=== PATIENT | male | born 1970 | race Caucasian/White ===

== ENCOUNTER 2024-06-09 08:41 | Outpatient (REF) | payer MEDICAID, SELFPAY ==
[2024-06-09 16:28] LABS: Calculated LDL 166 mg/dL (<100); Cholesterol 239 mg/dL (<200); HDL Cholesterol 61 mg/dL (40-60); Triglyceride 63 mg/dL (<150)
== END 2024-06-09 08:42 | disposition home or self-care (01) ==
LOC: NCHCN 08:41
PROVIDERS: PCP Family Medicine; Visit Provider Family Medicine
DX: Z00.00 Encounter for general adult medical examination without abnormal findings (principal)
CPT/HCPCS: 80061

== ENCOUNTER 2024-07-09 07:35 | Day surgery (SDC) | payer MEDICAID, SELFPAY ==
--- NOTE | 2024-07-08 09:18 | W.PM.DSUDISC ---
Date of service: 07/09/24 Discharge Plan Disposition Patient Disposition: Home Condition: Good Discharge Details Reason For Visit: screening colonoscopy Attending Provider: Manuelito Pollack Primary Care Provider: Sigifredo Henry Home Meds and New Rx's Prescriptions: Discontinued polyethylene glycol 3350 17 gram/dose powder 238 g PO ONCE Qty: 238 0RF Rx Instructions: take per colonoscopy instructions bisacodyl [Dulcolax (bisacodyl)] 5 mg tablet,delayed release (DR/EC) 5 mg PO ONCE Qty: 4 0RF Rx Instructions: take per colonoscopy instructions No Action No Known Home Meds Discharge Instructions Instructions: Colon polyps, Diverticulosis Additional Instructions: Kar, it was very nice meeting you today, and I hope you feel well after the colonoscopy. Everything went very smoothly. I did find, and removed 1 small polyp today. As we talked about beforehand, this will be sent off for testing since polyps, different types, and we use that information to help to find the timing of your next colonoscopy. Those results usually take about a week or so for me to get back, but once my office has those, we will be in touch. Incidentally, he also have a little bit of diverticulosis. Diverticula are weak spots in the muscular layer of the colon wall. This causes the inside or mucosal lining to pooch or pocket outwards through the muscular layer. These pockets are called diverticula, and the condition of having them is known as diverticulosis. I find these in most patients during routine colonoscopies. Many patients are never at all bothered by them. Some patients experience intermittent flareups of them referred to as diverticulitis. Hopefully that never happens for you. My general approach to taking care of diverticulosis is to recommend staying well-hydrated, avoiding symptoms of constipation, and incorporating more fiber into your basic diet. I will attach a little bit of information here about diverticulosis as well as colorectal polyps. If you need anything, or have any questions at all, please do not hesitate to ask, otherwise we will be in touch once we have the polyp report. 1. If tolerated, consume a soft, low fiber diet for 1-2 days. 2. Do not drive, drink alcohol, operate machinery, make critical decisions, or do activities that require coordination or balance for 24 hours. 3. Because air was put into your colon during the procedure, expelling air from your rectum (passing gas or farting) is normal. 4. You may not have a bowel movement for 1-3 days because of the colonoscopy prep. This is normal. 5. Go directly to the emergency room if you notice any of the following: Develop chills (warm to touch), or if you have a thermometer and your temperature is above 101 Difficulty breathing or difficultly swallowing Persistent vomiting Severe abdominal pain, other than gas cramps Severe chest pain Black, tarry stools Any bleeding ? exceeding one tablespoon 6. Call your physician if the site where your intravenous was started becomes red, swollen, painful, and warm to touch. 7. Your physician has reviewed your pre-procedure medications. Please continue to take those medications as previously ordered. You will be given specific information/education regarding any changes to your medications before leaving. Activity:: Activity as Tolerated Diet:: As Tolerated Discharge Orders Discharge Orders: Discharge Order (Routine); Ordered 07/08/24 Ordered By: Manuelito Pollack DS: Diagnosis Discharge Diagnosis (1) Encounter for screening colonoscopy: Status: Acute Asessment and Plan: Follow-up on polypectomy results
--- NOTE | 2024-07-08 09:19 | W.COLOREPORT ---
Date of service: 07/09/24 Time of Service: 09:41 Colonoscopy Report Date of procedure: 07/09/24 Pre-op diagnosis general: screening colonoscopy Post-op diagnosis procedure note: other (Diverticulosis, colon polyp) Procedure: colonoscopy with polypectomy Surgeon: Manuelito Pollack Anesthesia Type: General:No Airway Estimated blood loss (mL): 5 Pathology: other (0.25 cm flat polyp at 20 cm) Complications: None Disposition: same day Indications: Kar is a 54 year old man who needs his first screening colonoscopy Prep: Miralax/Dulcolax Procedure Start Time: :14 Procedure End Time: :30 Retraction Time: 13 Findings: Sigmoid diverticulosis, 0.5 cm flat polyp at 20 cm Procedure Description: After the induction of anesthesia, and with the patient in left lateral decubitus position, I began by performing an external anorectal exam.? Perineum and skin were normal, as was the anal verge.? There was no evidence of external hemorrhoids.? Next, I performed a digital rectal exam.? I did not appreciate any abnormal findings.? Next, I advanced a colonoscope into the rectal vault.? I performed retroflexion. This appeared normal.? Using irrigation, I then advanced the colonoscope beyond the rectal folds and into the sigmoid colon before advancing towards the cecum.? The quality of the prep was excellent.? The scope was noted to be in the cecum by identification of the ileocecal valve and appendiceal orifice.? I then began withdrawing the colonoscope using repeated irrigation as necessary for full evaluation of the colonic mucosa. There is sigmoid diverticulosis. Around 20 cm from the anal verge I identified a 0.25 cm polyp. ?It appeared flat in character. ?I was able to remove this with a cold forcep polypectomy. ?I examined the site, and there was minimal bleeding. ?Once this was completed, I continued to withdraw the scope and examine the remainder of the colonic mucosa. once the scope was withdrawn to the level of the rectum, great care was taken to examine portions of the rectal folds.? Finally, the scope was withdrawn and the patient was brought to the same-day surgery recovery unit as the anesthetic wore off. ?The findings and instructions were shared with the patient prior to discharge. [place] Bowel Prep [place] Bowel Prep Right Colon: 3 Left Colon: 3 Transverse Colon: 3 Total Score: 9
[2024-07-09 07:48] VITALS: BP 114/72; PULSE 63; RESP 18; TEMP 36.5; O2SAT 96
[2024-07-09] MEDS: Lactated Ringers 1,000 ML 80 ML IV (08:01)
--- NOTE | 2024-07-09 08:33 | W.ANESPRE ---
General Info Date of Service Date Performed: 07/09/24 Height: 6 ft Weight: 91.3 kg Body Mass Index (BMI): 27.3 Surgical Procedure: Operation Date: 07/09/24 08:50 Proposed Procedure Side Surgeon p Colonoscopy Manuelito Pollack MD Meds Allergies and Home Medications Allergies Allergy/AdvReac Type Severity Reaction Status Date / Time No Known Allergies Allergy Verified 07/09/24 07:54 Home Medication ?Medication ?Instructions ?Recorded Unknown [No Known Home Meds] 07/08/24 Current Visit Medications: Current Medications Generic Name Dose Route Start Last Admin Trade Name Freq PRN Reason Stop Dose Admin Ringer's Solution 1,000 mls @ 80 mls/hr 07/09/24 06:00 07/09/24 08:01 IV 07/09/24 23:59 80 mls/hr INFUSION CLARICE Administration IV Miscellaneous Supplies 1 each 07/09/24 06:00 Iv Access IV 07/09/24 23:59 DIRECTED CLARICE Sodium Chloride 0 ml 07/09/24 06:00 Normal Saline Flush 10 Ml Syr IV 07/09/24 23:59 PRN PRN Sodium Chloride 0 ml 07/09/24 06:00 Normal Saline 10 Ml Vial IJ 07/09/24 23:59 DIRECTED PRN Sterile Water 0 ml 07/09/24 06:00 Water,Injection,Sterile 10 Ml Vial IJ 07/09/24 23:59 DIRECTED PRN PFSH Active Problems Active Problems: Problem Status Onset Code Encounter for screening colonoscopy Acute Z12.11 Eczema Acute L30.9 Medical History Medical History Atypical chest pain R/T muscle strain from physical labor per referral. Surgical History Surgical History Hx of knee surgery Tobacco Smoking/Tobacco Use Status: Former Tobacco Use Passive smoking exposure: No Alcohol Alcohol Intake: former Substance Use Substance use: Daily Substance use type: marijuana Vital Signs and Lab Results Vital Signs Most Recent Vital Signs in EMR: Most Recent Vital Signs Temp Pulse Resp BP Pulse Ox 36.5 C 63 18 114/72 96 07/09/24 07:48 07/09/24 07:48 07/09/24 07:48 07/09/24 07:48 07/09/24 07:48 Lab Results Blood Type / Crossmatch: No Data to Display Complete Blood Count: No Data to Display Complete Metabolic Panel: No Data to Display Liver Function Panel: No Data to Display Coagulation Panel: No Data to Display Cardiac Panel: No Data to Display Arterial Blood Gas: No Data to Display Venous Blood Gas: No Data to Display Pancreas Panel: No Data to Display Thyroid Panel: No Data to Display Infectious Disease: No Data to Display Blood Cultures: No Data to Display Toxicology Panel: No Data to Display Anesthesia Assessment and Plan Anesthesia History Personal History: No History of Anesthesia Complications Family History: No Family History of Anesthesia Complications Exercise Tolerance Exercise Tolerance: Metabolic Equivalents>4 Pertinent Negatives Pertinent Negatives: No Symptoms of GERD Cardiac & Pulmonary Exam Cardiac Exam: Normal S1/S2 Heart Sounds Pulmonary Exam: Clear Bilateral Breath Sounds Implantable Cardiac Device Does patient have a Pacemaker or an ICD?: No Airway Exam Known Difficult Airway: No Mallampati Class: 3 Mouth Opening: Normal (> 3cm) Thyromental Distance: Less than 3 cm Neck Range of Motion: Full ROM Neck Circumference: Normal Teeth Condition: Normal Dentition ASA Classification ASA Score: ASA 2 Emergency Case?: No NPO Status NPO Status: NPO Clears >2 hours, Solids >8 hours Anesthesia Plan Resuscitation Status: Full Code Anesthesia Technique: General Anesthesia Airway Planned: Natural Airway Monitors Used: Standard Monitors
[2024-07-09 08:34] VITALS: BMI 27.3
--- NOTE | 2024-07-09 09:29 | BOWEL_PTH ---
PATIENT: Kar Lucio LOC: [facility] U#:[id number] AGE/SX: 54/M ROOM: RE07/09/[address]: Manuelito Pollack MD : 1970 BED: DIS: 07/09/2024 SPEC #: [id number] RECD: 07/09/24 12:45 STATUS: DYLAN REQ #: [id number] MATI: 07/09/24 09:[address]: Manuelito Pollack DEPT: Surgical Specimen RECD BY: Caitlin Ngo ENTERED: 07/09/24 12:46 SP TYPE: Bowel OTHR DR: Sigifredo Henry Tissues: 1 - BIOPSY BOWEL Procedures: GROSS AND MICRO LEVEL 4 Comments: [id number]
[2024-07-09 09:37] VITALS: BP 103/70; PULSE 63; RESP 16; TEMP 36; O2SAT 98
--- NOTE | 2024-07-09 09:40 | W.ANESPOSTOP ---
Postoperative Evaluation Date, Time and Location Date Performed: 07/09/24 Time Performed: 09:40 Patient Location: Day Surgery Unit Vital Signs Most Recent Imported Vital Signs: Most Recent Vital Signs Temp Pulse Resp BP Pulse Ox 36.0 C L 63 16 103/70 98 07/09/24 09:37 07/09/24 09:37 07/09/24 09:37 07/09/24 09:37 07/09/24 09:37 Pain Score Most Recent Pain Score: Most Recent Pain Score Pain Level 0 07/09/24 09:37 Assessment Mental Status: Awake (Alert & Oriented to Patient Baseline) Airway and Respiratory Function: Patent airway with normal (patient baseline) respiratory exam Cardiovascular Function: Hemodynamically Stable Hydration Status: Adequately Hydrated Nausea & Vomiting: No Nausea or Vomiting Pain: Pt. Denies Any Pain Peripheral Nerve Block: Patient did not receive a nerve block
[2024-07-09 10:03] VITALS: BP 122/74; PULSE 57; RESP 16; TEMP 36.6; O2SAT 97
== END 2024-07-09 10:20 | disposition home or self-care (01) ==
LOC: SUR 07:36
PROVIDERS: PCP Family Medicine; Visit Provider Surgery
PROC: 0DJD8ZZ Inspection of Lower Intestinal Tract, Via Natural or Artificial Opening Endoscopic (ICD-10-PCS; CPT 45378; principal; 2024-07-09 08:45)
DX: Z12.11 Encounter for screening for malignant neoplasm of colon (principal); K57.30 Diverticulosis of large intestine without perforation or abscess without bleeding; D12.5 Benign neoplasm of sigmoid colon
CPT/HCPCS: 45380; 88305; J2704